=== PATIENT | male | born 1995 | race Hispanic/Latino ===

== ENCOUNTER → 2019-03-27 | Outpatient (CLI) | payer OTHER, SELFPAY ==
[2019-03-27 12:21] LABS: Absolute Lymphocyte Count 1.93 X10^3/uL (0.83-4.51); Absolute Neutrophil Count 3.5 X10^3/uL (2.0-7.7); Basophil# 0.03 X10^3/uL; Basophil% 0.4 % (0-1); Eosinophil# 0.74 X10^3/uL; Eosinophils% 11.1 % (0-5); Hematocrit 47.3 % (40-54); Hemoglobin 15.3 g/dL (13.0-16.5); Lymphocyte # 1.93 X10^3/ul (4.0); Lymphocyte % 28.9 % (19-41); Mean Corp Hgb Conc 32.3 g/dL (32-36); Mean Corpuscular Hgb 27.1 pg (27.0-32.0); Mean Corpuscular Volume 83.7 fL (80-94); Mean Platelet Vol. 10.9 fl (6.2-12.0); Monocyte# 0.44 X10^3/uL; Monocyte% 6.6 % (0-10); NRBC Flagged by Analyzer 0 % (0-5); Neutrophil # 3.51 X10^3/uL (2.7-7.7); Neutrophil % 52.6 % (47-70); Platelet Count 250 K/mm3 (150-450); RBC Distribution Width CV 13.3 % (11.6-14.6); RBC Distribution Width SD 40.5 fl (35.1-43.9); Red Blood Count 5.65 M/mm3 (4.6-6.2); White Blood Count 6.7 K/mm3 (4.4-11.0)
[2019-03-27 12:42] LABS: ALB/GLOB Ratio 1.3 RATIO (0.9-2.4); AST(SGOT) 21 U/L (15-37); Alanine Aminotransfer ALT/SGPT 23 U/L (16-61); Albumin, Serum 4.5 g/dL (3.2-5.0); Alkaline Phosphatase 78 U/L (45-117); Anion Gap 5 (5-15); BUN 19 mg/dL (7-18); BUN/Creat Ratio 18.6 RATIO (10-20); Calcium,Total 9.6 mg/dL (8.5-10.1); Chloride 109 mmol/L (98-107); Creatinine, Serum 1.02 mg/dL (0.70-1.30); EST Glomerular Filtration Rate 96 mL/min (>60); Est Glom Filt Rate - Afr Amer 116 mL/min (>60); Globulin 3.4 g/dL (2.2-4.2); Glucose 94 mg/dL (74-106); Potassium 4.1 mmol/L (3.5-5.1); Protein, Total 7.9 g/dL (6.4-8.2); Sodium Level 140 mmol/L (136-145)
[2019-03-31 12:07] LABS: HEPATITIS B SURFACE AG Negative (Negative); Hepatitis A AB, Total Negative (Negative); Hepatitis A IgM Antibody Negative (Negative); Hepatitis B Core AB IgM Negative (Negative); Hepatitis B Core Ab Total Negative (Negative); Hepatitis C Ab <0.1 s/co ratio (0.0-0.9)
[2019-03-31 16:40] LABS: Hep B Surface Antibodies Non Reactive (.)
== END | disposition home or self-care (01) ==
LOC: MTLAB 09:57
PROVIDERS: PCP Preventive Medicine Occupational Medicine; Referring Provider Dermatology; Visit Provider Dermatology
DX: L43.8 Other lichen planus (principal)
CPT/HCPCS: 36415; 80053; 85025; 86480; 86704; 86705; 86706; 86708; 86709; 86803; 87340

== ENCOUNTER 2020-09-07 22:26 | Emergency (ER) | payer OTHER, SELFPAY ==
[2020-09-07 22:29] VITALS: BP 143/76; PULSE 88; RESP 16; TEMP 36.1; O2SAT 99; BMI 25.4
--- NOTE | 2020-09-07 22:40 | EDS_ITS ---
HPI History of Present Illness Chief Complaint: Head Injury Narrative Narrative: 25-year-old male presenting with scalp laceration. Patient was at work. He was bent over and when he lifted his head up he hit it on a clipboard. He has bleeding to his posterior scalp. His tetanus is up-to-date. No other injuries. He had no loss of consciousness. No amnesia to the event. No vomiting. Tetanus Immunization: <5 years PFSH PFSH Home Medications NK 09/07/20 [History Last Taken Unknown] Allergy/AdvReac Type Severity Reaction Status Date / Time Penicillins [PCN] AdvReac Other Verified 09/07/20 22:27 Social History Smoking Status: Never smoker ROS ROS ED Constitutional Constitutional ED: Denies fever(s) Eyes Eyes: Denies change in vision Gastrointestinal Gastrointestinal: Denies nausea or vomiting Neurologic Neurologic: Denies headache(s) EXAM Physical Exam Const Vital Signs: 09/07/20 22:29 Temperature 97 F L Temperature Source Temporal Pulse Rate 88 Respiratory Rate 16 Blood Pressure 143/76 H Blood Pressure Mean 98 Pulse Ox 99 Positive well nourished and well developed General Appearance ED: well developed HEENT Reports normocephalic and head/scalp atraumatic HEENT Narrative: 1.5 cm right posterior scalp laceration. Eyes PERRL and EOMs intact bilaterally Neck supple General: Negative for tenderness Chest Wall inspection of chest normal Resp normal respiratory effort and clear to auscultation bilaterally Cardio regular rate and regular rhythm no CVA tenderness Extremity normal to inspection Neuro oriented x3 and no focal motor deficits Sensorium / Orientation: alert Psych mental status grossly normal PROC Procedures Lacerations scalp: Length: 0.59 in Depth: Skin Shape: Linear Prep: Sterile Conditions Laceration repair: Irrigated, Lidocaine and Local Number of Sutures/[place]: 2 Comment: yevgeniy MDM MDM MDM Narrative Medical decision making narrative: His tetanus is up-to-date. Wound was irrigated. Anesthetized with lidocaine. Closed with 2 yevgeniy. Patient tolerated this well. Advised wound care instructions. Discharge Plan Triage Chief Complaint: Head Injury ED Provider: Vicki Cabral Dx/Rx/DC Orders Clinical Impression: Laceration of scalp Instructions: ED Laceration Scalp Stitches or Yevgeniy Prescriptions: No Action NK RF: 0 Primary Care Provider: Saurav Mckinnon Referrals: [facility] [GROUP OF PHYSICIANS] - Saurav Mckinnon DO [Primary Care Provider] - Disposition Disposition: Home, Self Care
[2020-09-08] MEDS: Lidocaine 1% (20 ml mdv) 20 ML Vial INFILT (00:05)
== END 2020-09-08 00:09 | disposition home or self-care (01) ==
LOC: ED 22:55
PROVIDERS: Emergency Provider Emergency Medicine; PCP Preventive Medicine Occupational Medicine
DX: S01.01XA Laceration without foreign body of scalp, initial encounter (principal); W26.8XXA Contact with other sharp object(s), not elsewhere classified, initial encounter; Y93.89 Activity, other specified; Y92.89 Other specified places as the place of occurrence of the external cause; Y99.0 Civilian activity done for income or pay
CPT/HCPCS: 12001; 99283